=== PATIENT | female | born 1940 | race Caucasian/White ===

== ENCOUNTER → 2016-10-28 | Day surgery (SDC) | payer BC ==
[~2016-10-28] MED LIST: ASCO10002 PO; ASPI-482 PO; ATOR20TA PO; B CO1TAB8 PO; BUPIVACAINE MPF 0.5% 30 ML VIAL. ONE; CALC600T4 PO; CELE200C PO; CETI10TA22 PO; CHOL10003 PO; CLINDAMYCIN 600MG PREMIX 50 ML IV PRN; DEXAMETHASONE SOD PHOS 20 MG/5 ML VIAL. ONE; DOCO100C PO; DULO30CA2 PO; ESOM40CA PO; FAMOTIDINE 20 MG/2 ML VIAL ONE; FERR-26 PO; FISH12002 PO; FLUO40CA2 PO; GLYCOPYRROLATE 1 MG/5 ML VIAL. ONE; IRON PO; IV RINGERS,LACTATED 1000ML 1,000 ML IV SCH; LIDOCAINE 1% 1 ML SYRINGE. ID PRN; LIDOCAINE 1% 20 ML VIAL. ONE; LIDOCAINE 2% 100 MG/5 ML SYRINGE. ONE; METAMUCIL425 GM PO; MULT1TAB52 PO; NEOSTIGMINE METHYLSULFATE 5 MG/5 ML SYRINGE. ONE; NIAC500T PO; OMEG1CAP38 PO; OMEP40CA5 PO; ONDANSETRON PF 4 MG/2 ML VIAL. IV PRN; ONDANSETRON PF 4 MG/2 ML VIAL. ONE; OXYC-323 PO; OXYCODONE/APAP 5/325 TABLET. PO ONE; Oxycodone Hcl/Acetaminophen PO; PROCHLORPERAZINE 10 MG/2 ML VIAL. IV PRN; PROPOFOL 20 ML IV ONE; PSYL1PAC7 PO; ROCURONIUM 50 MG/5 ML VIAL. ONE; SEVOFLURANE 61 TO 120 MINUTES. IH ONE; SEVOFLURANE > 120 MINUTES. IH ONE; TEMA30CA PO; TRAZ150T55 PO; VITA100020 PO; VITA10004 PO; WARF-78 PO; Warfarin Sodium MC; fentaNYL PF VIAL 100 MCG/2 ML VIAL IV PRN; fentaNYL PF VIAL 100 MCG/2 ML VIAL ONE
--- NOTE | 2016-10-28 09:12 | ACF ---
Admission Forms Criteria AMBULATORY SURGERY EXCEPTION CRITERIA Ambulatory Surgery Exception Criteria ( Place 'X' for any and all applicable criteria): Surgery or procedure performed on ambulatory basis may require inpatient stay for[A] ANY ONE of the following(1)(2)(3)(4)(5)(6)(7)(8)(9): [] I. A preoperative situation, condition, or finding that warrants inpatient stay as indicated by ANY ONE of the following: [] a) Inpatient care needed because of severity of a disease or condition rather than the surgery (eg, severe cardiac or respiratory disease, severe infection) (15) (16 ) (17) (18) [] b) Emergent procedure (eg, angioplasty for acute ischemia)(19) [] c) Complex surgical approach or situation as indicated by ANY ONE of the following(3): [] i) Open approach needed instead of usual endoscopic, transcatheter, or other less invasive procedure [] ii) Difficult approach because of previous operation [] iii) Airway monitoring required after open neck procedures(20)(21 ) [] iv) Large mass requiring unusually extensive dissection [] v) Additional complicating feature requiring inpatient care (eg , drain management)(22(23): [] d) Major surgery in a pt with high anesthetic risk as indicated by ANY ONE of the following (2)(3)(5)(7)(8): [] i) ASA risk class III or higher (severe systemic disease impairing function) [D] [] ii) Advanced age (eg, older than 85 years)(14)(24) [] iii) Symptomatic heart failure(25) [] iv) Symptomatic asthma or COPD(8)(21) [] v) Morbid obesity with hemodynamic or respiratory problems(20)( 21)(26)(27) [] vi) Obstructive sleep apnea(20)(21) [] vii) Former premature infants who are younger than 60 weeks [] viii) High risk for severe postoperative abnormalities (eg, severe postoperative hypocalcemia after parathyroidectomy for severe hyperparathyroidism)(27)( 28) [] ix) Unstable angina(25) [] e) Drug-related risk requiring inpatient stay as indicated by ANY ONE of the following(5)(10)(14)(32)(33) [] i) Procedure requires discontinuing drugs or other therapy (eg , antiarrhythmic medication, antiseizure medication), which necessitates inpatient observation or treatment.(18)(31) [] ii) Major surgery and high risk drug use as indicated by ANY ONE of the following: [] 1) Active abuse of cocaine or similar drug [] 2) Monoamine oxidase inhibitor use [] 3) Other drug identified as posing risk [] f) Inadequate outpatient care situation as indicated by ANY ONE of the following(5)(10)(14)(32)(33) [] i) Patient lives remote from medical facility and procedure has urgent complication potential, and temporary nearby residence cannot be arranged [] ii) Patient will have postprocedure incapacitation and inadequate assistance at home, or alternative level of care cannot be arranged. [] iii) Patient will have long general anesthesia or procedure side effect resolution time, and competent person to stay with patient on first postoperative night at home or alternative level of care cannot be arranged. [] iv) Other inadequate outpatient situation that cannot be handled by other means [X] II. A perioperative event, condition, or finding that warrants inpatient stay as indicated by ANY ONE of the following (1)(2)(3): [] a) Inadequate physiologic recovery: cardiovascular, respiratory, or hemodynamic status not normal or near preoperative baseline(18) [] b) Hemodynamic instability [] c) Patient not alert with near normal or baseline mental status [] d) Temperature not normal or as expected and not appropriate for outpatient treatment of condition [] e) Ambulatory or appropriate activity level status not yet achieved post procedure [E](34)(35)(36) [] f) Operative site not appropriate (eg, unexpected or excessive drainage or bleeding) [X] g) Postoperative effects not resolved or adequately managed (eg, significant pain or vomiting not appropriate for outpatient or next level of care)(10)(12) [] h) Complicating features requiring inpatient care as indicated by ANY ONE of the following(37): [] i) Severe complications of procedure (eg, bowel injury, airway compromise, vascular injury,severe hemorrhage) [] ii) Extensive (eg, dissection far beyond usual scope of procedure ) or prolonged (eg, 120 minutes beyond usual) surgery needed requiring inpatient postoperative care [] iii) Conversion to an open or complex procedure that requires inpatient care (eg, open vs laparoscopic cholecystectomy, abdominal vs vaginal hysterectomy)(38) [] iv) Comorbid condition or test result identified during or post procedure that requires inpatient care (7) [] v) Malignant hyperthermia(30) [] vi) Other complicating feature requiring inpatient care(22)(23) Inpatient stay may be needed until ALL of the following are present (1)(2)(3)(4) (5)(6)(10)(14)(33)(40): []a) Physiologic recovery: cardiovascular, respiratory, and hemodynamic status normal or near preoperative baseline []b) Hemodynamic stability []c) Patient alert, with near normal or baseline mental status []d) Temperature appropriate: patient afebrile or temperature appropriate for outpt treatment of condition []e) Activity level appropriate: ambulatory or appropriate activity level post procedure []f) Operative site appropriate as indicated by ALL of the following: []i) Site dry or with expected drainage []ii) Any blood noted is as expected for procedure. []g) Postoperative effects resolved or managed as indicated by ALL of the following: []i) Pain management appropriate for outpatient (or next level of) care(10) []ii) Minimal nausea and vomiting: if present, successfully treated with oral medication(12) []iii) Headache, dizziness, or drowsiness (if present) are mild. []h) Voiding status acceptable as indicated by ANY ONE of the following: []i) Voiding spontaneously []ii) No voiding but instructions given for follow-up in 6 to 8 hours []iii) Urinary catheter in place, and instructions given for follow-up []i) Complicating features requiring inpatient care manageable at a lower level of care(37) []j) Comorbid conditions manageable at a lower level of care(37) The original [employer] content created by [employer] has been revised. The portions of the content which have been revised are identified through the use of italic text or in bold, and [facility] [employer] has neither reviewed nor approved the modified material. All other unmodified content is copyright [employer]. Please see references footnoted in the original [employer] [employer] edition 2016 Admission Criteria Met?: Yes CHAPARRO GARCIA October 28, 2016 09:12 CARROLL MARTINS II, MD October 29, 2016 14:03
--- NOTE | 2016-10-28 11:57 | DISCH ---
DISCHARGE INSTRUCTIONS Condition on Discharge Condition on Discharge: Stable Activity After Discharge Activity Instructions for Disc: Other, see below Other activity instructions: arm to remain in sling Bathing Instructions: Shower-keep dressing dry Weight Bearing Status after Di: Non weight bearing Diet after Discharge Diet after Discharge: Regular Wound Incision Care Wound/Incision Care: Ice to area for comfort, Keep wound/cast CDI, Change dressing Contacting the DR. after DC Call your doctor for: Concerns you may have Follow-Up Follow up with: Kassandra in 2 wks CARROLL MARTINS II, MD October 28, 2016 11:57
--- NOTE | 2016-10-28 11:58 | PDOC ---
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
[2016-10-28 12:36] VITALS: BP 145/69
--- NOTE | 2016-10-28 16:40 | OP ---
DATE OF SURGERY: 10/28/2016 SURGEON: Dalton Martins M.D. MEDICAL SECRETARY RECEPTIONIST: Kashif Allen. ANESTHESIA: General. PREOPERATIVE DIAGNOSIS: Displaced left distal clavicle fracture nonunion. POSTOPERATIVE DIAGNOSIS: Displaced left distal clavicle fracture nonunion. PROCEDURE PERFORMED: Open reduction and internal fixation left distal clavicle fracture. ESTIMATED BLOOD LOSS: 25 mL. COMPLICATIONS: None. COMPONENTS INSERTED: Murray and Nephew left distal clavicle fracture locking plate. REASON FOR PROCEDURE: The patient is a very pleasant 76-year-old who had a fall several months ago and suffered a closed left distal clavicle fracture that was causing her persistent pain and dysfunction of her left upper extremity. She had seen myself in consultation for a second opinion. I discussed the risks, benefits, alternatives and possible expected outcomes to operative versus nonoperative management, and she and her family elected to proceed with surgery. DESCRIPTION OF PROCEDURE: The patient was greeted in the preoperative area by myself. Correct extremity was marked and verified. She was taken to the operative suite and antibiotics were started en route. Once in the OR, she was transferred supine to the OR table and had successful induction of general anesthesia. We then positioned her on the bed and placed a large pad under her legs and set her up in a beach chair position, maintaining her C-spine in neutral position. All pressure points were padded. She was secured to the bed. After that, we proceeded to prep and drape her left upper extremity and shoulder girdle in our usual sterile fashion and conducted a standard preoperative timeout. I then palpated for her surface anatomy and made a straight incision over her left distal clavicle region and dissected skin with electrocautery and then identified the clavicle shaft and worked a little medially with periosteal elevator to expose the bone in anticipation of my plate application. I then directed my attention to the fracture site and noted a buttonhole through fascia and had interposed muscle. I spent some time taking this down and freeing up the nonunion site. I did debride it with a rongeur, metal tip sucker and a curette. I did reestablish the medullary canal. I then identified the distal fracture fragment and as well I removed the dense fibrotic tissue that had formed over this. I had self-retraining retractors in at this point as well and continued to expose bone anteriorly and posteriorly as well as the fracture fragment. After I had achieved appropriate exposure, I then brought in C-arm and placed a 22-gauge needle in the AC joint to lenore this. I then used my arm positioning device to elevate her shoulder girdle, which helped reduce it. I was able to apply some digital pressure as well as to check my reduction and I was happy with this maneuver and therefore, I used a dental pick in [id number] to facilitate better reduction and confirmed this under fluoroscopic imaging. I then sized and positioned my plate and secured it to bone with a nonlocking screw through the shaft. I then placed two more locking screws through the shaft. I then proceeded to fill the distal holes with locking screws except for the very lateral and anterior hole would not accept a locking screw due to the trajectory necessary. After filling the screw holes as much as I was able to, then released my clamps and was happy with the fracture reduction. I removed all the retractors and the needle and then brought in C-arm again to confirm appropriate plate position and hardware placement. I was happy with how everything had proceeded. I then irrigated out the operative field with sterile normal saline and reapproximated her clavipectoral fascia with simple interrupted 0 Vicryl alternating with a [id number]. Inverted interrupted 2-0 was used for subcutaneous tissue and running 4-0 Monocryl was used for skin. I injected approximately 5 mL of local anesthetic mixture into the nancy-incisional area. After this case, her shoulder girdle was cleansed and dried and sterile dressing was applied followed by an abduction pillow sling. She tolerated surgery well. No complications. Prior to completion of wound closure, all counts reported correct x 2. At the conclusion of surgery, the patient was laid supine and transferred to the recovery room cart and taken to PACU in stable and extubated condition. Postop plan is to discharge home. She will follow up with me in 2 weeks. She will be nonweightbearing. I did discuss this with her family members presents today. DALTON MARTINS MD DR: MORRO/nemesio JOB#: [id number] / [id number] LISA
== END | disposition home or self-care (01) ==
LOC: SURG 07:23
PROVIDERS: ATTEND Orthopaedic Surgery Sports Medicine
DX: S42.032K Displaced fracture of lateral end of left clavicle, subsequent encounter for fracture with nonunion (principal); X58.XXXD Exposure to other specified factors, subsequent encounter; I25.10 Atherosclerotic heart disease of native coronary artery without angina pectoris; E78.00 Pure hypercholesterolemia, unspecified; K21.9 Gastro-esophageal reflux disease without esophagitis; F41.9 Anxiety disorder, unspecified; D64.9 Anemia, unspecified; Z90.710 Acquired absence of both cervix and uterus; Z87.39 Personal history of other diseases of the musculoskeletal system and connective tissue; Z96.651 Presence of right artificial knee joint
CPT/HCPCS: 23515; 76000; A4215; C1713; J1100; J2405; J2704; J2710; J3010; J3490; J7120; S0028

== ENCOUNTER 2016-11-20 11:28 | Day surgery (SDC) | payer BC ==
[~2016-11-20 11:28] MED LIST changes: -CLINDAMYCIN 600MG PREMIX 50 ML IV PRN; -DEXAMETHASONE SOD PHOS 20 MG/5 ML VIAL. ONE; -FAMOTIDINE 20 MG/2 ML VIAL ONE; -GLYCOPYRROLATE 1 MG/5 ML VIAL. ONE; -LIDOCAINE 1% 20 ML VIAL. ONE; +LIDOCAINE 1% PF 30 ML VIAL. ONE; -LIDOCAINE 2% 100 MG/5 ML SYRINGE. ONE; -NEOSTIGMINE METHYLSULFATE 5 MG/5 ML SYRINGE. ONE; -ONDANSETRON PF 4 MG/2 ML VIAL. ONE; -OXYCODONE/APAP 5/325 TABLET. PO ONE; -PROPOFOL 20 ML IV ONE; -ROCURONIUM 50 MG/5 ML VIAL. ONE; -SEVOFLURANE 61 TO 120 MINUTES. IH ONE; -SEVOFLURANE > 120 MINUTES. IH ONE; -fentaNYL PF VIAL 100 MCG/2 ML VIAL ONE
[2016-11-20] MEDS ORDERED: ROPIVacaine 0.5% PF 30 ML VIAL. ONE (12:45)
[2016-11-20] MEDS ORDERED: LIDOCAINE 2% PF Vial for OR 5 ML VIAL. ONE (12:51)
[2016-11-20] MEDS ORDERED: PROPOFOL 20 ML IV ONE (12:51)
[2016-11-20] MEDS ORDERED: ROCURONIUM 50 MG/5 ML VIAL. ONE (12:52)
[2016-11-20] MEDS ORDERED: SUCCINYLCHOLINE 200 MG/10 ML VIAL. ONE (12:52)
--- NOTE | 2016-11-20 13:14 | DISCH ---
DISCHARGE INSTRUCTIONS Condition on Discharge Condition on Discharge: Stable Activity After Discharge Activity Instructions for Disc: Other, see below Other activity instructions: arm to remain in sling Bathing Instructions: Shower-keep dressing dry Weight Bearing Status after Di: Non weight bearing Diet after Discharge Diet after Discharge: Regular Wound Incision Care Wound/Incision Care: Ice to area for comfort, Keep wound/cast CDI, Change dressing Contacting the DR. after DC Call your doctor for: Concerns you may have Follow-Up Follow up with: Kassandra in 2wks CARROLL MARTINS II, MD November 20, 2016 13:14
--- NOTE | 2016-11-20 13:15 | PDOC ---
BRIEF OPERATIVE NOTE Date: November 20, 2016 Pre-Op Diagnosis Failure of ORIF L distal clavicle fx Post-Op Diagnosis same Procedure Performed Open L CC recon with allograft Surgeon Kassandra Orta Anesthesia Type: General, Regional CARROLL MARTINS II, MD November 20, 2016 13:15
[2016-11-20] MEDS ORDERED: fentaNYL PF VIAL 100 MCG/2 ML VIAL ONE (14:02)
[2016-11-20] MEDS ORDERED: MIDAZOLAM HCL/PF 2 MG/2 ML VIAL. ONE (14:03)
[2016-11-20] MEDS ORDERED: ePHEDrine PF IN SALINE 50 MG/5 ML DISP.SYRIN IV ONE ×2 (14:33→16:01)
[2016-11-20] MEDS ORDERED: PHENYLEPHRINE in 0.9% NACL PF 1 MG/10 ML DISP.SYRIN. IV ONE (14:41)
[2016-11-20] MEDS ORDERED: DESFLURANE > 120 MINUTES IH ONE (15:21)
[2016-11-20] MEDS ORDERED: NEOSTIGMINE 10 MG/10 ML VIAL. ONE (16:06)
[2016-11-20] MEDS ORDERED: GLYCOPYRROLATE 1 MG/5 ML VIAL. ONE (16:07)
[2016-11-20] MEDS ORDERED: FAMOTIDINE 20 MG/2 ML VIAL ONE (16:46)
[2016-11-20] MEDS ORDERED: oxyCODONE/APAP 5/325 1 TAB TABLET ONE (17:39)
[2016-11-20] MEDS ORDERED: oxyCODONE/APAP 5/325 1 TAB TABLET PO ONE (17:45)
[2016-11-20 18:15] VITALS: BP 145/65
--- NOTE | 2016-11-21 05:11 | OP ---
DATE OF SURGERY: 11/20/2016 SURGEON: Dalton Martins MD PSYCHIATRIC TECHNICIAN ASSISTANT: Patricia Orta. PREOPERATIVE DIAGNOSIS: Left distal clavicle fixation failure. POSTOPERATIVE DIAGNOSIS: Left distal clavicle fixation failure. PROCEDURE PERFORMED: 1. Open left coracoclavicular ligament reconstruction, allograft. 2. Removal of deep implant, Murray and Nephew clavicular locking plate. COMPONENTS INSERTED: Peroneus longus allograft was used. ANESTHESIA: General plus regional nerve block. ESTIMATED BLOOD LOSS: 50 mL COMPLICATIONS: None. REASON FOR PROCEDURE: The patient is a very pleasant 76-year-old female who I had seen several months after her initial injury involving a fall where she suffered a closed left distal clavicle fracture. She had presented to my outpatient orthopedic surgery clinic with complaints of shoulder pain and loss of function. Clinical and radiographic examination performed and after discussion of the risks, benefits and alternatives, her and I proceeded with ORIF of her left distal clavicle. When she followed up for her first appointment, I noted loss of fixation at the distal fragment. Her and I and her daughter had a discussion of the risks, benefits, alternatives to the above procedures and she elected to proceed. DESCRIPTION OF PROCEDURE: The patient was greeted in the preoperative area by myself where the correct extremity was marked and verified. She was taken to the operative suite and antibiotics were started en route. Once in the OR, she was transferred gently supine to the OR table and had successful induction of a regional nerve block followed by general anesthesia. After this, we sat her up in a beach chair position and maintained her C-spine in a neutral position and had a large pad under her legs. She was secured to the bed. All pressure points were padded. We then proceeded to prep and drape the left upper extremity in our usual sterile fashion including Ioban at the periphery. After this, we secured her arm to the spider arm positioning device and then conducted our standard preoperative timeout. I then began the procedure by incising her skin through her prior skin incision and removing the suture material with a hemostat. After this, I continued on, bluntly dissected with a combination of digital dissection as well as Metzenbaum to expose a plate, which I then removed without complication including ____ the locking screws. I then used a metal tip suction device and a curette to debride the overlying tissue on top of the bone as well as at the fracture site. I used a combination of that as well as a curette and rongeur to debride the fracture site and made sure the medullary canal was reestablished. After this, I then repositioned her arm with biters and I used a dental pick through one of the drill holes to pull anterior traction on the distal end of the clavicle to make sure the fracture was still easily reducible, which it was. I then used a hemostat, curved in 90 degrees to dissect underneath the coracoid process and then I attempted to use a Hewson suture passer, which I bent to try to shuttle a suture underneath the coracoid, but I had a lot of difficulty with this and eventually I was just able to take a free suture ____ 2 curved hemostats and shuttle the suture through passing from one to another underneath the coracoid. After this, I directed my attention to helping my podiatric assistant prepare the peroneus longus graft, which was approximately 10 cm in length. The two ends of this were whipstitched ____ the remainder of the graft in a moistened lap. I whipstitched it with a #2 Ultrabraid suture. We then wrapped it with a moist lap and directed our attention back to the operative field. I then used a 4.5 mm drill bit and drilled through one of the 3.5 drill holes. I then used the Hewson suture passer to shuttle one of the free suture limbs that was underneath the coracoid through this drill tunnel. I then created another drill tunnel with the same drill bit and repeated the same maneuver to shuttle the suture limb through it. I then repositioned the arm and placed a glyxz-[id number] reduction clamp to reduce the fracture and used suction around it and inspected this and was happy with the reduction. I then used the free suture to shuttle my whipstitched suture ends through the tunnel ____ the coracoid. I then pulled the graft ____ and while my podiatric assistant lifted up on the arm and gently pressed down on the clavicle, I tied this securely. I then supplemented it with a [id number] #2 Ultrabraid in a figure-of-8 fashion as well. I was happy with this repair. I let the tension off the arm attachment device and noted no motion at the fracture site. I then irrigated out the operative field thoroughly and made sure to remove all loose bony debris. I then closed the fascia with a simple interrupted #2 Vicryl followed by inverted interrupted 2-0 for the subcutaneous tissue and running 4-0 Monocryl for the skin. This was done in a subcuticular fashion. I then injected about 20 mL of a local anesthetic mixture into the nancy-incisional area. All counts reported as correct x 2 prior to accomplishing wound closure. At the conclusion of the surgery, the arm and shoulder were cleansed and dried and a sterile dressing was applied. The arm was then placed into a sling that was iron tight. This was done after the drapes were taken down and the dressing was applied. She was then laid gently supine and was then awakened from anesthesia and transferred extubated to the recovery room cart. She was taken to PACU in stable and extubated condition. Postop plan is for nonweightbearing x 6 weeks. She is to remain in the splint. She will follow up in 2 weeks, sooner should problems arise. DALTON MARTINS MD DR: MORRO/nemesio JOB#: [id number] / [id number]
[2016-11-21] MEDS ORDERED: CLINDAMYCIN 600MG PREMIX 50 ML IV PRN (06:00)
== END 2016-11-20 18:35 | disposition home or self-care (01) ==
LOC: SURG 11:28
PROVIDERS: ATTEND Orthopaedic Surgery Sports Medicine
DX: T84.498A Other mechanical complication of other internal orthopedic devices, implants and grafts, initial encounter (principal); Y83.8 Other surgical procedures as the cause of abnormal reaction of the patient, or of later complication, without mention of misadventure at the time of the procedure; I25.10 Atherosclerotic heart disease of native coronary artery without angina pectoris; E78.00 Pure hypercholesterolemia, unspecified; K21.9 Gastro-esophageal reflux disease without esophagitis; M17.11 Unilateral primary osteoarthritis, right knee; F41.9 Anxiety disorder, unspecified; F32.9 Major depressive disorder, single episode, unspecified; D64.9 Anemia, unspecified; Z90.710 Acquired absence of both cervix and uterus; Z87.39 Personal history of other diseases of the musculoskeletal system and connective tissue; Z96.651 Presence of right artificial knee joint
CPT/HCPCS: 20999; 23515; C1763; J0330; J2250; J2370; J2704; J2710; J2795; J3010; J3490; J7030; S0028